=== PATIENT | male | born 1965 | race African-American/Black ===

== ENCOUNTER 2016-07-16 12:53 | Emergency (ER) | payer MEDICAID ==
[~2016-07-16] VITALS: Wt 69.0 kg
[~2016-07-16 12:53] MED LIST: SODI44SP11 NS
[2016-07-16] MEDS ORDERED: SOD CHLORIDE 0.9% 1,000 ML IV STA (14:35)
[2016-07-16] MEDS ORDERED: HYDROmorphONE 1 MG/ML SYG IV STA ×2 (14:35→16:53)
[2016-07-16] MEDS ORDERED: ONDANSETRON 4 MG INJ IV STA (14:35)
[2016-07-16 15:05] LABS: ADD SCAN DIFF NO
[2016-07-16 15:11] LABS: BASOPHILS % 0.4 % (0.0-2.0); EOSINOPHILS # 0.2 10^3/ul (0.0-0.5); EOSINOPHILS % 2.1 % (0.0-7.0); HEMATOCRIT 33.5 % (42.0-52.0); HEMOGLOBIN 10.9 g/dl (14.0-18.0); LYMPHOCYTES # 2.8 10^3/ul (0.8-2.9); LYMPHOCYTES % 30.7 % (15.0-51.0); MEAN CORPUSCULAR HEMOGLOBIN 29.4 pg (29.0-33.0); MEAN CORPUSCULAR HGB CONC 32.5 g/dl (32.0-37.0); MEAN CORPUSCULAR VOLUME 90.3 fl (82.0-101.0); MEAN PLATELET VOLUME 9.5 fl (7.4-10.4); MONOCYTE # 1.1 10^3/ul (0.3-0.9); MONOCYTES % 11.8 % (0.0-11.0); NEUTROPHILS % 54.8 % (39.0-77.0); PLATELET COUNT 329 10^3/UL (140-415); RED BLOOD COUNT 3.71 10^6/ul (4.70-6.10); RED CELL DISTRIBUTION WIDTH 13.9 % (11.5-14.5); WHITE BLOOD COUNT 9.1 10^3/ul (4.8-10.8)
[2016-07-16 15:24] LABS: ALBUMIN 3.6 g/dl (3.3-4.9)
[2016-07-16 15:25] LABS: POTASSIUM 3.5 mmol/L (3.5-5.1)
[2016-07-16 15:27] LABS: ALBUMIN/GLOBULIN RATIO 1.16; BILIRUBIN,INDIRECT 0.1 mg/dl (0-1.1); BILIRUBIN,TOTAL 0.1 mg/dl (0.2-1.3); CREATININE 0.89 mg/dl (0.61-1.24); TOTAL PROTEIN 6.7 g/dl (6.1-8.1)
[2016-07-16 15:28] LABS: CALCIUM 8.8 mg/dl (8.4-10.2)
[2016-07-16] MEDS ORDERED: SOD CHLORIDE 0.9% 100 ML ONE (15:55)
[2016-07-16] MEDS ORDERED: IOHEXOL 300MG/ML 30 ML BTL ONE (15:55)
[2016-07-16 16:05] LABS: ADD UMIC NO; URINE BILIRUBIN (Dip) NEGATIVE (NEGATIVE); URINE BLOOD (Dip) NEGATIVE (NEGATIVE); URINE COLOR LT. YELLOW (YELLOW); URINE GLUCOSE (Dip) NEGATIVE (NEGATIVE); URINE KETONES (Dip) NEGATIVE (NEGATIVE); URINE LEUKOCYTE ESTERASE (Dip) NEGATIVE (NEGATIVE); URINE NITRITE (Dip) NEGATIVE (NEGATIVE); URINE TOTAL PROTEIN (Dip) NEGATIVE (NEGATIVE); URINE UROBILINOGEN (Dip) 0.2 E.U./dL (0.1-1.0)
--- NOTE | 2016-07-16 16:40 | RADRPT ---
PROCEDURE: CT facial bones with contrast CLINICAL INDICATION: Left facial swelling.. TECHNIQUE: A CT of the face following the uneventful intravenous injection of 85 cc Omnipaque-300 contrast was performed utilizing axial sections from the mandible through the orbits. Coronal and sa gittal images were also reformatted. The exam CTDIvol = 53.94 mGy and DLP = 1122.63 mGy-cm. COMPARISON: None available. FINDINGS: Frontal bone: Intact with the sinuses clear bilaterally. No fracture is present. Ethmoid bone: Mild mucosal thickening of the sinuses right side greater than left is present withou t air-fluid level. The medial orbital lerma are intact. Maxilla: Sarath apical lucencies adjacent to the right but second and third molars with associated den iram there is present (series 601 image 32) in addition, there is lucency adjacent to the right apex involving the left third greater than second molar with dental caries and in the third wire (series 601 images 52-53) chronic appearing mucosal thickening along the floors of the maxillary sinuses bi laterally is present without air fluid levels or antral fistula. Nasal bones: Intact bilaterally. Zygomata: Intact bilaterally. Sphenoid bone: Intact, the sinuses are clear. Mandible: Dental caries involves the left third molar with a subtle lucency adjacent to the root (s eries 601 image 62). Dental amalgam artifact of the remaining left teeth limit fine evaluation. Sub tle lucency is involving the right first and second bicuspid roots with dental caries in this locati on (series 601 image 29). There is no periosteal reaction or focal bone destruction to suggest sarath ostitis or osteomyelitis. The temporomandibular joints are normal bilaterally Temporal bones: The included portions are grossly normal, cerumen in the external auditory canals i s incidentally noted bilaterally but the mastoid air cells are clear and there is no periosteal reac tion. Soft tissues: Abnormal inflammatory phlegmon is present overlying the left mandible. There is in a ddition, an abnormal centrally hypodense and a peripherally enhancing collection along the buccal si de of the left mandibular angle, the abnormality measuring approximately 2.2 x 2.1 x 1.2 cm in crani al caudal, AP and transverse dimensions respectively (series 3 image 31, series 601 image 68). These findings are compatible with an abscess in the muscles of mastication. No right-sided abscess is p resent. RPTAT:HJJR IMPRESSION: 1. Left perimandibular abscess at the angle of the mandible along the buccal side measures 2.2 x 2.1 x 1.2 cm and is related to dental caries with root abscess of the left third molar. 2. Additional root abscesses, periapical lucencies, are also present with dental caries in the right mandibular first and second bicuspids, right second and third maxillary molars, and left second and third mandibular molars. 3. Mild chronic bilateral maxillary sinus disease without oral antral fistula. Physician Caron Date Time Electronically viewed and signed by Physician Caron on 07/16/2016 16:40 JR/
[2016-07-16] MEDS ORDERED: CLINDAMYCIN 300 MG CAP PO STA (16:54)
[2016-07-16] MEDS ORDERED: CLIN-73 PO (16:56)
[2016-07-16] MEDS ORDERED: HYDR-906 PO (16:59)
--- NOTE | 2016-07-16 17:54 | ERD ---
ER Documentation Chief Complaint Date/Time DATE: 07/16/16 TIME: 17:36 Chief Complaint left side dental pain for the past few days no releif with meds HPI This is a 51-year-old male presenting to the emergency room complaining of left- sided dental pain for the past week. Patient states that on Thursday he was seen by his dentist and he was given Keflex antibiotic which she has finished the antibiotics today and has called his dentist however the dentist said to come to the ER. Patient states that he has swelling in the left face and it is very difficult for him to open his mouth due to the pain. ROS All systems reviewed and are negative except as per history of present illness. Medications Home Meds Active Scripts Hydrocodone/Acetaminophen ([place] 5-325 Tablet) 1 Each Tablet, 1 TAB PO Q6H Y for PAIN, #14 TAB Prov:TIGIST LEBRON PA-C 07/16/16 Clindamycin Hcl* (Clindamycin Hcl*) 300 Mg Capsule, 300 MG PO TID for 5 Days, CAP Prov:TIGIST LEBRON PA-C 07/16/16 Sodium Chloride (Saline Nasal [place]) 45 Ml [place], 1 SPRAY NS QID for for episyaxis for 10 Days, SPRAY Prov:ALESSANDRO GENAO MD 01/24/15 Allergies Allergies: Coded Allergies: No Known Allergy (Unverified , 07/16/16) PMhx/Soc Medical and Surgical Hx: pt denies Medical Hx, pt denies Surgical Hx Hx Alcohol Use: No Hx Substance Use: Yes (mj) Hx Tobacco Use: No Physical Exam Vitals Vital Signs Date Time Temp Pulse Resp B/P Pulse Ox O2 Delivery O2 Flow Rate FiO2 07/16/16 12:58 989.1 77 20 162/80 98 Physical Exam General: WD/WN, in no apparent distress, non-toxic appearing HENT: NC/AT Eyes: Conjunctiva normal Neck: Supple Pulm: Clear to auscultation, normal labored breathing; no wheezing/rales/ rhonchi heard CV: Good capillary refill GI: Non-distended, no guarding Back: No masses Ext: No clubbing, cyanosis, or edema Neuro: Moves on all fours Skin: Left-sided facial swelling, no erythema or induration obvious caries left third molar Psych: Normal mood Result Diagram: 07/16/16 1455 07/16/16 1455 Results 24 hrs Laboratory Tests Test 07/16/16 14:55 07/16/16 15:00 White Blood Count 9.110^3/ul Red Blood Count 3.7110^6/ul Hemoglobin 10.9g/dl Hematocrit 33.5% Mean Corpuscular Volume 90.3fl Mean Corpuscular Hemoglobin 29.4pg Mean Corpuscular Hemoglobin Concent 32.5g/dl Red Cell Distribution Width 13.9% Platelet Count 14952^3/UL Mean Platelet Volume 9.5fl Neutrophils % 54.8% Lymphocytes % 30.7% Monocytes % 11.8% Eosinophils % 2.1% Basophils % 0.4% Nucleated Red Blood Cells % 0.0/100WBC Neutrophils # 5.010^3/ul Lymphocytes # 2.810^3/ul Monocytes # 1.110^3/ul Eosinophils # 0.210^3/ul Basophils # 0.010^3/ul Nucleated Red Blood Cells # 0.010^3/ul Sodium Level 143mmol/L Potassium Level 3.5mmol/L Chloride Level 107mmol/L Carbon Dioxide Level 27mmol/L Anion Gap 13 Blood Urea Nitrogen 16mg/dl Creatinine 0.89mg/dl Glucose Level 92mg/dl Calcium Level 8.8mg/dl Total Bilirubin 0.1mg/dl Direct Bilirubin 0.00mg/dl Indirect Bilirubin 0.1mg/dl Aspartate Amino Transf (AST/SGOT) 19IU/L Alanine Aminotransferase (ALT/SGPT) 17IU/L Alkaline Phosphatase 62IU/L Total Protein 6.7g/dl Albumin 3.6g/dl Globulin 3.10g/dl Albumin/Globulin Ratio 1.16 Lipase 155U/L Urine Color LT. YELLOW Urine Clarity CLEAR Urine pH 6.0 Urine Specific [place] 1.025 Urine Ketones NEGATIVE Urine Nitrite NEGATIVE Urine Bilirubin NEGATIVE Urine Urobilinogen 0.2 E.U./dL Urine Leukocyte Esterase NEGATIVE Urine Hemoglobin NEGATIVE Urine Glucose NEGATIVE% Urine Total Protein NEGATIVE Current Medications Medications (Trade) Dose Ordered Sig/Murphy Route PRN Reason Start Time Stop Time Status Last Admin Dose Admin Sodium Chloride (NS) 1,000 ml @ 1,000 mls/hr Q1H STAT IV 07/16/16 14:35 07/16/16 15:34 DC 07/16/16 14:56 Hydromorphone HCl (Dilaudid) 0.5 mg ONCE STAT IV 07/16/16 14:35 07/16/16 14:39 DC 07/16/16 14:56 Ondansetron HCl (Zofran Inj) 4 mg ONCE STAT IV 07/16/16 14:35 07/16/16 14:39 DC 07/16/16 14:56 IV Flush 10 ml 10 ml STK-MED ONCE .ROUTE 07/16/16 15:55 07/16/16 15:56 DC Sodium Chloride (NS) 100 ml @ ud STK-MED ONCE .ROUTE 07/16/16 15:55 07/16/16 15:56 DC Iohexol (Omnipaque 300mg/ ml) 30 ml STK-MED ONCE .ROUTE 07/16/16 15:55 07/16/16 15:56 DC Hydromorphone HCl (Dilaudid) 0.5 mg ONCE STAT IV 07/16/16 16:53 07/16/16 16:54 DC 07/16/16 17:08 Clindamycin HCl (Cleocin) 300 mg ONCE STAT PO 07/16/16 16:54 07/16/16 16:56 DC 07/16/16 17:19 Procedures/MDM This is a 51-year-old male presenting to the emergency department complaining of left facial swelling which is consistent with a left perimandibular abscess along the third molar that was found on CT. Patient has stable vital signs, he was afebrile. IV access was established. Lab work was drawn. CBC did not show any evidence of leukocytosis or anemia. CMP did not show any evidence of renal, liver, or electrolyte abnormalities. Lipase was normal. UA did not show any evidence of hemoglobin or urinary tract infection. I have consulted my supervising physician who discussed for him to follow-up with his dentist. There is no evidence of deep space infections. No evidence of bacteremia. Patient was given clindamycin in the ED and a prescription for outpatient. Patient is hematuria stable for discharge to follow-up with his dentist tomorrow and to return to the ER for any worsening signs or symptoms. He understands and agrees with this plan. CT face: 1. Left perimandibular abscess at the angle of the mandible along the buccal side measures 2.2 x 2.1 x 1.2 cm and is related to dental caries with root abscess of the left third molar. 2. Additional root abscesses, periapical lucencies, are also present with dental caries in the right mandibular first and second bicuspids, right second and third maxillary molars, and left second and third mandibular molars. 3. Mild chronic bilateral maxillary sinus disease without oral antral fistula. Departure Diagnosis: Primary Impression: Dental abscess Condition: Fair Patient Instructions: Dental Abscess Referrals: YOUR DOCTOR Additional Instructions: FOLLOW UP WITH YOUR PRIMARY CARE PHYSICIAN TOMORROW. Return to this facility if you are not improving as expected. Take all medicines as directed. Return to this facility if you are not improving as expected. You have been given a medicine which may cause drowsiness.DO NOT DRIVE OR OPERATE DANGEROUS MACHINERY while taking this medicine! TIGIST LEBRON PA-C Jul 16, 2016 17:54
== END 2016-07-16 17:39 | disposition home or self-care (01) ==
LOC: FTE 12:53
DX: K04.7 Periapical abscess without sinus (principal)
CPT/HCPCS: 36415; 70486; 80053; 81003; 83690; 85025; 96374; 96375; 96376; J1170; J2405; J7030; Q9967; Z7502; Z7610

== ENCOUNTER 2016-07-17 12:06 | Emergency (ER) | payer MEDICAID ==
[~2016-07-17] VITALS: Wt 68.2 kg
[~2016-07-17 12:06] MED LIST changes: +CLIN-73 PO; +HYDR-906 PO
[2016-07-17] MEDS ORDERED: KETOROLAC 60 MG INJ IM STA (13:26)
--- NOTE | 2016-07-17 13:46 | ERD ---
ER Documentation Chief Complaint Date/Time DATE: 07/17/16 TIME: 13:44 Chief Complaint left side swelling and dental pain for the past few days HPI 51-year-old male with a past medical history of various dental caries presents to the ED complaining of a second and third mandibular molar pain that started 2 weeks ago and that has worsened yesterday. States that he followed up with Dr. gonzales, his dentist on July 11, 2016 and was prescribed Tylenol with codeine and Keflex. Reports that the pain and symptoms have not been improving therefore he came in yesterday and received a full workup with a CT which showed left perimandibular abscess at the angle of the mandible about 2 cm in size. States that he is here today because of the worsening swelling noted on the left side of his jaw. Denies any fever, chills, dysphagia, vomiting, diarrhea, abdominal pain, nausea, neck stiffness, neck pain, headache, weakness , numbness or tingling. ROS All systems reviewed and are negative except as per history of present illness. Medications Home Meds Active Scripts Hydrocodone/Acetaminophen ([place] 5-325 Tablet) 1 Each Tablet, 1 TAB PO Q6H Y for PAIN, #14 TAB Prov:TIGIST LEBRON PA-C 07/16/16 Clindamycin Hcl* (Clindamycin Hcl*) 300 Mg Capsule, 300 MG PO TID for 5 Days, CAP Prov:TIGIST LEBRON PA-C 07/16/16 Sodium Chloride (Saline Nasal [place]) 45 Ml [place], 1 SPRAY NS QID for for episyaxis for 10 Days, SPRAY Prov:ALESSANDRO GENAO MD 01/24/15 Allergies Allergies: Coded Allergies: No Known Allergy (Unverified , 07/16/16) PMhx/Soc Medical and Surgical Hx: pt denies Medical Hx, pt denies Surgical Hx Hx Alcohol Use: No Hx Substance Use: Yes (mj) Hx Tobacco Use: No Smoking Status: Never smoker Physical Exam Vitals Vital Signs Date Time Temp Pulse Resp B/P Pulse Ox O2 Delivery O2 Flow Rate FiO2 07/17/16 12:08 99.1 76 20 170/88 98 Physical Exam Const: [id number], well-nourished. In no acute distress. Head: Atraumatic, normocephalic Eyes: Normal Conjunctiva without injection. No purulent discharge. PERRL. EOMI ENT: Normal external ear. Ear canal without erythema. Tympanic membrane pearly lombardi without effusion or bulging. Nasal canal clear with normal turbinates. Moist oropharynx without tonsillar exudates. Non-erythematous pharynx. Tenderness to palpation of the left mandibular second and third molar. No fluctuance noted. No erythema. Left-sided buccal edema noted. Uvula midline. No drooling. Slight trismus noted. Neck: Full range of motion. No meningismus. No cervical lymphadenopathy. Resp: Clear to auscultation bilaterally. No wheezing, rhonchi, rales, or crackles. No accessory muscle use. No retractions. Cardio: Regular rate and rhythm. No murmurs, rubs or gallops. Abd: Soft, non tender, non distended. Normal bowel sounds. No palpable masses. No rebound tenderness. No guarding. Skin: No petechiae or rashes Back: No midline tenderness. No CVA tenderness. Ext: No cyanosis, or edema. Neur: Awake and alert. Psych: Normal Mood and Affect Results 24 hrs Current Medications Medications (Trade) Dose Ordered Sig/Murphy Route PRN Reason Start Time Stop Time Status Last Admin Dose Admin Ketorolac Tromethamine (Toradol) 60 mg ONCE STAT IM 07/17/16 13:26 07/17/16 13:27 DC 07/17/16 13:41 Procedures/MDM This is a 51-year-old male with no significant past medical history presents the ED complaining of left cheek swelling and dental pain that is worsened in the last 2 days. Due to patient's inability to open his mouth, he returned to the ED today for worsening symptoms. Patient is afebrile and nontoxic- appearing. Patient's blood pressure was noted to be 170/88. Patient's blood pressure was elevated (>120/80) but appears stable without evidence of hypertension emergency or urgency. The patient was counseled about the risks of hypertension and urged to pursue outpatient monitoring and therapy within a week with their primary care physician. Low suspicion for end organ damage. This case was discussed with my supervising physician, Dr. Rm who stated that we can consult Dr. Ramos, ENT specialist. Dr. Ramos stated that patient can follow-up with an outpatient basis for with a dentist. Patient needs treatment plan consisting of extraction of the affected teeth. No leukocytosis noted. Patient's physical exam include lungs which were clear to auscultation and a normal pulse oximetry. Bilateral ears pearly amaral. No tenderness to palpation of tragus or mastoid. Low suspicion for mastoiditis, otitis externa, otitis media. Patient is speaking in full sentences. There is a low suspicion for pneumonia, epiglottitis, croup, sinusitis, peritonsillar abscess, hands foot mouth disease, scarlet fever, Kawasaki disease, retropharyngeal abscess, meningitis, sepsis, acute abdomen or other emergent conditions. Strictly instructed patient to continue taking clindamycin, follow-up with a dentist for extraction, and take Moro as needed for pain. Follow up with primary care physician in 1-2 days. Instructed patient to return to the ED sooner for any worsening symptoms. Patient's questions were answered. Patient understood and agreed with discharge plan. Patient discharged stable. Departure Diagnosis: Primary Impression: Dental abscess Condition: Stable Patient Instructions: Dental Abscess Referrals: [facility] YOU HAVE RECEIVED A MEDICAL SCREENING EXAM AND THE RESULTS INDICATE THAT YOU DO NOT HAVE A CONDITION THAT REQUIRES URGENT TREATMENT IN THE EMERGENCY DEPARTMENT. FURTHER EVALUATION AND TREATMENT OF YOUR CONDITION CAN WAIT UNTIL YOU ARE SEEN IN YOUR DOCTORS OFFICE WITHIN THE NEXT 1-2 DAYS. IT IS YOUR RESPONSIBILITY TO MAKE AN APPOINTMENT FOR FOLOW-UP CARE. IF YOU HAVE A PRIMARY DOCTOR --you should call your primary doctor and schedule an appointment IF YOU DO NOT HAVE A PRIMARY DOCTOR YOU CAN CALL OUR PHYSICIAN REFERRAL HOTLINE AT IF YOU CAN NOT AFFORD TO SEE A PHYSICIAN YOU CAN CHOSE FROM THE FOLLOWING [facility] [address] [facility] [address] [facility] [facility] [address] [facility] [facility] [address] [facility] [address] [facility]. [facility]. [address] [facility]. [facility] YOU HAVE RECEIVED A MEDICAL SCREENING EXAM AND THE RESULTS INDICATE THAT YOU DO NOT HAVE A CONDITION THAT REQUIRES URGENT TREATMENT IN THE EMERGENCY DEPARTMENT. FURTHER EVALUATION AND TREATMENT OF YOUR CONDITION CAN WAIT UNTIL YOU ARE SEEN IN YOUR DOCTORS OFFICE WITHIN THE NEXT 1-2 DAYS. IT IS YOUR RESPONSIBILITY TO MAKE AN APPOINTMENT FOR FOLOW-UP CARE. IF YOU HAVE A PRIMARY DOCTOR --you should call your primary doctor and schedule and appointment IF YOU DO NOT HAVE A PRIMARY DOCTOR YOU CAN CALL OUR PHYSICIAN REFERRAL HOTLINE AT . IF YOU CAN NOT AFFORD TO SEE A PHYSICIAN YOU CAN CHOSE FROM THE FOLLOWING [facility] INSTITUTIONS: [facility] [address] [place] [address] [facility] [address] [place] [address] [facility] [address] [place] [address] [facility] DENTIST ([facility] walk in clinic) Additional Instructions: CONTINUE AND COMPLETE COURSE OF ANTIBIOTICS, CLINDAMYCIN PRESCRIBED ON 07/16/16. FOLLOW UP WITH YOUR DENTIST WITHIN 24 HOURS.Return to this facility if you are not improving as expected. AUGUSTINE VILLALTA PA-C Jul 17, 2016 13:46
== END 2016-07-17 14:06 | disposition home or self-care (01) ==
LOC: FTE 12:06
DX: K04.7 Periapical abscess without sinus (principal)
CPT/HCPCS: 96372; J1885; Z7502

== ENCOUNTER 2016-08-14 04:59 | Emergency (ER) | payer MEDICAID ==
[~2016-08-14] VITALS: Ht 185.4 cm; Wt 65.9 kg
[2016-08-14 05:02] VITALS: Ht 185.4 cm; Wt 65.9 kg
[2016-08-14] MEDS ORDERED: ONDANSETRON (ODT) 4 MG TAB ODT STA (06:16)
[2016-08-14] MEDS ORDERED: morphine 10 MG INJ IM ONE (06:30)
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
[2016-08-14] MEDS ORDERED: DIAZEPAM 5 MG TAB PO ONE (07:30)
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
[2016-08-14] MEDS ORDERED: HYDR-906 PO (08:14)
[2016-08-14] MEDS ORDERED: IBUP-1542 PO (08:14)
[2016-08-14] MEDS ORDERED: DIAZ-90 PO (08:14)
[2016-08-14 08:30] VITALS: BP 132/82; PULSE 82; RESP 18
== END 2016-08-14 08:30 | disposition home or self-care (01) ==
LOC: FTE 04:59
DX: S16.1XXA Strain of muscle, fascia and tendon at neck level, initial encounter (principal); M62.830 Muscle spasm of back; M25.511 Pain in right shoulder; M79.644 Pain in right finger(s); G93.89 Other specified disorders of brain; V43.62XA Car passenger injured in collision with other type car in traffic accident, initial encounter
CPT/HCPCS: 70450; 71010; 72125; 73030; 73130; 96372; J2270; Z7502; Z7610